=== PATIENT | male | born 1930 | race Caucasian/White ===

== ENCOUNTER → 2016-07-29 | Emergency (ER) | payer MEDICARE, MEDICAID ==
[~2016-07-29] VITALS: Ht 177.8 cm; Wt 72.6 kg
[~2016-07-29] MED LIST: ABILIFY5 MG PO; ALPRAZOLAM0.25 M2 PO; AMLODIPINE10 M2 PO; ASPIRIN 81MG TA81 MG PO; DOXAZOSIN MESYLA1 MG PO; FERROUS SULFAT325 M2 PO; FINASTERIDE5 M1 PO; FINASTERIDE5 MG PO; INDERAL 20MG. T20 MG PO; IPRATROPIUM BROM3 M1 INH; LEVOFLOXAC250 MG/10 PO; MIRTAZAPINE15 M1 PO; NEIGHBOR PO; NORCO 325 MG-51 TAB PO; PAROXETINE HYDR10 MG PO; PREDNISONE 10MG10 MG PO; PREDNISONE 5MG.5 MG PO; SEROQUEL25 MG PO; TRAZODONE 50MG50 MG PO; XARELTO15 MG PO
--- NOTE | 2016-07-29 11:32 | Emergency Room Report ---
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 PER EMS REPORT NO LOC, STATED PT WAS SITTING UP IN THE WHEELCHAIR WHEN THEY ARRIVED. 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 N Clinical Suspician of Infection? N Mental Status: 1 - Regular (Normal Baseline) Sepsis Risk:Low Sepsis Risk Have you (or family members/close friends) recently traveled outside the [place]? N If Yes, where/when: Have you had exposure to infectious disease within the past month? N TB? Other? Specify: Source patient, RN notes reviewed Exam Limitations no limitations Comment Pt send from the [facility] after he reportedlyfell out of his Wheelchair this morning. He is non verbal and has severe dementia. He does have a small cut in the right eyebrow but is alert and awake. When EMS arrived he was sitting in his wheelchair and no other complaints. Tetanus is UTD Cardiac Chest Pain Chest pain indicative of cardiac No ALLERGIES Coded Allergies: No Known Allergies (07/09/16) Home Medications Active Scripts ALBUTEROL-IPRATROPIUM (Iprat-Albut 0.5-3(2.5) MG/3 Ml) 3 ML INH Q6H6 14 Days Prov: 07/21/16 Levofloxacin 250 MG PO DAILY 6 Days Prov: 07/21/16 Reported Medications Doxazosin Mesylate (Doxazosin) 1 MG PO QHS Acetaminophen (Pain Reliever) 500 mg PO Q6HP PRN PAIN Alprazolam 0.25 MG PO QHS & Q6HP PRN ANXIETY ASPIRIN (Aspirin) 81 MG PO DAILY Quetiapine Fumarate (Seroquel) 12.5 MG PO AM & HS Prednisone (Prednisone 5MG) 5 MG PO DAILY Finasteride 5 MG PO DAILY Amlodipine Besylate (Amlodipine) 10 MG PO DAILY Ferrous Sulfate (Ferrous Sulfate 325MG) 325 MG PO BID Finasteride 5 MG PO DAILY Propranolol Hcl (Inderal 20MG. Tablet) 20 MG PO BID History Medical History General CAD? No Angina: No MT: No Hypertension? Yes Hyperlipidemia? Yes CHF? No DVT? No PE? No COPD? No Asthma? No Anemia? Yes GERD? No Gastric ulcers? Yes GI Bleed? No Hernia? Yes Thyroid Problems? No Hypothyroidism? No CVA? No Seizures? No Diabetes? No Renal Insuffiency? No End Stage Renal Disease? No UTI? No Stones? No BPH? Yes GB Disease: No Nephritic Syndrome? No Asplenia? No Hepatitis? No Sickle Cell Disease? No Arthritis? Yes Migraines? No Cataracts? Yes Glaucoma? No MRSA? No HIV? No TB? No Anxiety? Yes Depression? No Cancer? No More? 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 DT/Tetanus 1-4 Years Ago Pneumonia Received In Past Surgical Hx Previous Surgery?Y HERNIA REPAIR Family History Family Hx Diabetes No CAD No Hypertension Yes Hyperlipidemia Yes Cancer Yes Social History Smoking Hx Smoker: Unknown if Ever Smoked Tobacco: No Packs/day N/A Alcohol Alcohol: No Review of Systems All Other Systems Reviewed and Negative Constitutional see HPI Eyes see HPI, other (small lac right eyebrow) Psychiatric/Neurological see HPI Physical Exam Vital Signs Vital Signs Date Time Temp Pulse Resp B/P Pulse O2 O2 Flow FiO2 Ox Delivery Rate 07/29 1112 97.1 72 18 118/66 96 General Appearance normal appearance, WD/WN, no apparent distress Respiratory Status No: respiratory distress. Lung Sounds bilateral: normal breath sounds. Cardiovascular normal exam, regular rate/rhythm Neurologic alert, aphasia, pt has severe dementia and is non verbal Skin small laceration right eyebrow where the edges are well opposed Medical Decision Making LABS/Meds/Orders Pt receiving controlled substance in ED? No Results/Orders Orders Procedure Date/time Status DIET-NOTHING BY MOUTH 07/[address] HEAD REQ 07/29 1112 Complete Departure Departure Time of Disposition 1246 Disposition DC Home or Self Care(routine) Clinical Impression Primary Impression: Closed head injury Qualifiers: Encounter type: initial encounter Qualified Code: S09.90XA - Unspecified injury of head, initial encounter Secondary Impressions: Laceration of right eyebrow Qualifiers: Encounter type: initial encounter Qualified Code: S01.111A - Laceration without foreign body of right eyelid and periocular area, initial encounter Condition STABLE Patient Instructions Closed Head Injury, DI for Closed Head Injury Additional Instructions Follow Head injury instructions and keep laceration clean and dry. Return to the ED as needed. Discharge Counseling Counseled pt/family regarding diagnosis, test results, home care, follow up needs ED Critical Care Critical Care No If Critical Care minutes are documented, the time involved in the performance of seperately reportable procedures was not counted toward critical care time documented. I directly delivered medical care to this critically ill and/or injured patient. Timely evaluation and treatment was necessary to address the significant organ system(s) dysfunction present in this patient. at [id number]
--- OUTSIDE RECORDS SUMMARY | 2016-07-29 11:44 | External Medical Summary Rpt ---
Author Author , Organization [employer] Address Unknown Phone Unavailable Care Team Providers Care Homicide Squad Commanding Officer Name Role Phone BEINEKE DEANGELO, BEINEKE Unavailable Unavailable DEANGELO WILSON ALL, WILSON ALL Unavailable Unavailable [facility] Unavailable Unavailable SERVICE, [facility] Unavailable Unavailable [facility]ICE, [facility] Unavailable [place], [facility] Unavailable Unavailable [facility], [facility] ANGELITA NGA, Unavailable Unavailable ANGEILTA NGA AMBIKA LEILA, AMBIKA Unavailable Unavailable LEIL[facility] Unavailable [facility], [facility] Unavailable Unavailable [facility], [facility] GARCIA GINI, GARCIA GINI Unavailable Unavailable [facility], [facility], [facility] Un[facility] Unavailable [facility], [facility], Unavailable Unavailable [facility], Unavailable Unavailable [facility] RENUSCH STEVO, RENUSCH Unavailable Unavailable STEVO Purpose Continuity of Care Document - 05-25-2015 through 2016 Problems Code Diagnosis DOS Provider Status N390 URINARY 05-16-2016 [facility] INFECTION LA SITE NOT SPECIFIED R300 DYSURIA 05-16-2016 [facility] LA E785 HYPERLIPIDE 04-14-2016 [facility]ERT [facility] UNSPECIFIED LA I10 ESSENTIAL 04-14-2016 [facility]IMARY [facility] HYPERTENSIO LA N R5381 OTHER 04-14-2016 [facility] MALAISE [facility] LA R5383 OTHER 04-14-2016 [facility] FATIGUE [facility] LA D649 ANEMIA 03-29-2016 [facility] UNSPECIFIED PHYSICIANS LA G309 ALZHEIMERS 01-19-2016 [facility] UNSPECIFIED SERVICE M542 CERVICALGIA 01-18-2016 [facility] R05 COUGH 01-18-2016 [facility] [id number] CONTUSION 01-18-2016 [facility] UNS PART [facility], HEAD PLLC INITIAL ENCOUNTER [id number] UNSPECIFIED 01-18-2016 [facility] HEAD SERVICE INITIAL ENCOUNTER [id number] STRAIN 01-18-2016 [facility] MUSCLE FASC [facility], & TENDON PLLC NECK LEVL INIT ENC Q32UBWS UNSPECIFIED 01-18-2016 [facility] FALL [facility] INITIAL SERVICE ENCOUNTER Z043 ENCOUNTER 01-18-2016 [facility] FOLLOW OTH ACCIDENT R0989 OTH SPEC SX 01-06-2016 [facility] INVLV THE CIRC & RESP SYS R918 OTHER 12-13-2015 [facility] ABNORMAL FINDING OF LUNG FIELD D599 ACQUIRED 11-18-2015 [facility] UNSPECIFIED G932 BENIGN 11-18-2015 [facility] HYPERTENSIO N K219 GASTRO-ESOP 11-18-2015 [facility] REFLUX [facility] DISEASE HOME WITHOUT ESOPHAGITIS M6281 MUSCLE 11-18-2015 [facility] WEAKNESS [facility] GENERALIZED HOME R1319 OTHER 11-18-2015 [facility] DYSPHAGIA LONG[facility] R262 DIFFICULTY 11-18-2015 [facility] IN WALKING [facility]URSING NOT HOME ELSEWHERE CLASSIFIED Z9181 HISTORY OF 11-18-2015 [facility] FALLING LONG[facility] R4182 ALTERED 10-31-2015 [facility] UNSPECIFIED [id number] LACERATION 10-31-2015 [facility] W/O FB PHYSICIANS, OTHER PART PLL HEAD INITIAL ENC G35 MULTIPLE 09-24-2015 [facility] SCLEROSIS [facility] SERVICE M02080 PAIN IN 09-24-2015 [facility] G58772 SPONDYLOSIS 09-24-2015 [facility] W/O MEDICAL MYELOPATH/R [facility] ADICULOPATH Y CERV RGN M5032 OTH CERV 09-24-2015 [facility] DISC [facility]ICAL DEGENERATIO [facility] N MID-CERVICA L REGION R51 HEADACHE 09-24-2015 [facility] R58 HEMORRHAGE 09-24-2015 [facility] NOT [facility]BUL[facility] ELSEWHERE SERVICE CLASSIFIED R7881NT CONTUSION 09-24-2015 [facility] INITIAL [facility] ENCOUNTER [id number] CONTUSION 09-24-2015 [facility] OTHER PART PHYS[facility]ANS, OF HEAD PLLC INITIAL ENCOUNTER K679SVZ OTHER 09-24-2015 [facility] SPECIFIED AMBULANCE INJURIES SERVICE HEAD INITIAL ENCOUNTER Q116UBS UNSPECIFIED 09-24-2015 [facility] INJ[facility]Y OF MEDICAL NECK [facility] ASS INITIAL ENCOUNTER [id number] LACERATION 09-24-2015 [facility] W/O FOREIGN MEDICAL BODY RT IMAGING ASS WRIST INITIAL ENC X0481EA UNSPECIFIED 09-24-2015 [facility] INJURY RT MEDICAL WRIST HAND [facility] FINGERS INITIAL R109 UNSPECIFIED 07-26-2015 [facility] PAIN D72.829 ELEVATED WHITE BLOOD CELL COUNT, UNSPECIFIED 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 QFD0417 J18.9 PNEUMONIA, UNSPECIFIED ORGANISM J20.9 ACUTE BRONCHITIS, UNSPECIFIED J32.9 CHRONIC SINUSITIS, UNSPECIFIED R09.02 HYPOXEMIA S00.83XA CONTUSION OF OTHER PART OF HEAD, INITIAL ENCOUNTER S00.93XA CONTUSION OF UNSPECIFIED PART OF HEAD, INITIAL ENCOUNTER S01.319A LACERATION WITHOUT FOREIGN BODY OF UNSP EAR, INIT ENCNTR S01.81XA LACERATION W/O FOREIGN BODY OF OTH PART OF HEAD, INIT ENCNTR S16.1XXA STRAIN OF MUSCLE, FASCIA AND TENDON AT NECK LEVEL, INIT T17.908A UNSP FB IN RESP TRACT, PART UNSP CAUSING OTH INJURY, INIT W19.XXXA UNSPECIFIED FALL, INITIAL ENCOUNTER Z66 DO NOT RESUSCITATE Medications Na ND Rx Da Fi Fi Am Da Di Ph RX Ph St me C No te ll ll ou ys ag ar # ys at rm s nt no ma ic us Or Da si cy ia de te s n re d 00 02 04 0 [address] Ac PI 90 -2 -2 0. D 10 AR ti RI 46 8- 7- 00 CA 39 K ve N 28 20 20 0 RE 48 CH 81 88 [address] MG AR OP MA HE CH CY R EW J AB LL LE C TA BL ET FE 00 02 04 0 [address] Ac RR 53 -0 -2 0. D 10 AR ti OU 61 6- 7- 00 CA 39 K ve S 00 20 20 0 RE 47 CH IVEY 90 17 17 RI LF [address] AT AR OP E MA HE 32 CY R 5 J MG LL C TA BL ET RE 53 01 04 0 [address] Ac ME 32 -3 -1 80 D 05 AR ti DY 90 1- 7- .0 CA 90 K ve 16 20 20 00 RE 61 CH SK 10 17 17 RI IN [address] AR OP RE MA HE PA CY R IR J LL CR C EA M FE 00 02 03 0 60 30 ME 13 RI Ac RR 53 -0 -2 0. D 94 CH ti OU 61 6- 7- 00 CA 53 AR ve S 00 20 20 0 RE 01 D IVEY 90 17 17 RYAN LF 1 PH HN AT AR W E MA 32 CY 5 MG LL C TA BL ET 00 02 03 0 30 30 ME 13 RI Ac PI 90 -2 -2 0. D 94 CH ti RI 46 8- 7- 00 CA 53 AR ve N 28 20 20 0 RE 09 D 81 88 17 17 RYAN 9 PH HN MG AR W MA CH CY EW AB LL LE C TA BL ET 00 02 02 0 30 30 ME 13 RI Ac PI 90 -2 -2 0. D 82 CH ti RI 46 8- 8- 00 CA 69 AR ve N 28 20 20 0 RE 61 D 81 88 17 17 RYAN 9 PH HN MG AR W MA CH CY EW AB LL LE C TA BL ET FE 00 02 02 0 60 30 ME 13 RI Ac RR 90 -0 -2 0. D 71 CH ti OU 47 6- 8- 00 CA 25 AR ve S 59 20 20 0 RE 65 D IVEY 18 17 17 RYAN LF 0 PH HN AT AR W E MA 32 CY 5 MG LL C TA BL ET MA 00 02 02 0 60 15 ME 13 RI Ac PA 90 -2 -2 0. D 81 CH ti P 41 7- 7- 00 CA 36 AR ve 50 98 20 20 0 RE 89 D 0 86 17 17 RYAN MG 1 PH HN AR W TA MA BL CY ET LL C RE 53 01 01 0 11 15 ME 13 RI Ac ME 32 -3 -3 80 D 68 CH ti DY 90 1- 1- .0 CA 24 AR ve 16 20 20 00 RE 33 D SK 10 17 17 RYAN IN 4 PH HN AR W RE MA PA CY IR LL CR C EA M FE 00 04 01 0 60 30 ME 13 RI Ac RR 53 -0 -0 0. D 52 CH ti OU 61 1- 2- 00 CA 90 AR ve S 00 20 20 0 RE 75 D IVEY 90 16 17 RYAN LF 1 PH HN AT AR W E MA 32 CY 5 MG LL C TA BL ET CA 53 05 01 0 99 5 ME 13 RI Ac RR 32 -1 -0 0. D 53 CH ti IN 90 2- 2- 00 CA 68 AR ve GT 07 20 20 0 RE 29 D ON 68 16 17 RYAN 1 PH HN MO AR W IS MA T CY BA RR LL IE C R CR EA M FE 00 04 12 0 33 17 ME 13 RI Ac RR 53 -0 -0 0. D 39 CH ti OU 61 1- 3- 00 CA 09 AR ve S 00 20 20 0 RE 52 D IVEY 90 16 16 RYAN LF 1 PH HN AT AR W E MA 32 CY 5 MG LL C TA BL ET FE 00 04 11 0 60 30 ME 13 RI Ac RR 53 -0 -0 0. D 23 CH ti OU 61 1- 4- 00 CA 37 AR ve S 00 20 20 0 RE 75 D IVEY 90 16 16 RYAN LF 1 PH HN AT AR W E MA 32 CY 5 MG LL C TA BL ET MA 00 08 10 0 60 15 ME 12 RI Ac PA 90 -1 -1 0. D 79 CH ti P 41 5- 7- 00 CA 39 AR ve 50 98 20 20 0 RE 05 D 0 86 16 16 RYAN MG 1 PH HN AR W TA MA BL CY ET LL C FE 00 04 10 0 60 30 ME 13 RI Ac RR 53 -0 -0 0. D 10 CH ti OU 61 1- 8- 00 CA 10 AR ve S 00 20 20 0 RE 94 D IVEY 90 16 16 RYAN LF 1 PH HN AT AR W E MA 32 CY 5 MG LL C TA BL ET MA 00 03 07 0 30 7 ME 12 RI Ac PA 90 -0 -2 0. D 70 CH ti P 41 8- 9- 00 CA 45 AR ve 50 98 20 20 0 RE 63 D 0 86 16 16 RYAN MG 1 PH HN AR W TA MA BL CY ET LL C FE 00 04 07 0 60 30 ME 12 RI Ac RO 90 -0 -2 0. D 68 CH ti IVEY 47 1- 6- 00 CA 49 AR ve L 59 20 20 0 RE 36 D 32 08 16 16 RYAN 5 2 PH HN MG AR W MA TA CY BL ET LL C CA 53 05 07 0 99 5 ME 12 RI Ac RR 32 -1 -2 0. D 68 CH ti IN 90 2- 5- 00 CA 76 AR ve GT 07 20 20 0 RE 80 D ON 68 16 16 RYAN 1 PH HN MO AR W IS MA T CY BA RR LL IE C R CR EA M MA 00 03 07 0 30 7 ME 12 RI Ac PA 90 -0 -1 0. D 63 CH ti P 41 8- 1- 00 CA 96 AR ve 50 98 20 20 0 RE 32 D 0 86 16 16 RYAN MG 1 PH HN AR W TA MA BL CY ET LL C CA 53 05 06 0 99 5 ME 12 RI Ac RR 32 -1 -2 0. D 58 CH ti IN 90 2- 7- 00 CA 75 AR ve GT 07 20 20 0 RE 49 D ON 68 16 16 RYAN 1 PH HN MO AR W IS FERNANDA T CY BA RR LL IE C R CR EA M FE 00 04 06 0 60 30 ME 12 RI Ac RO 90 -0 -2 0. D 57 CH ti IVEY 47 1- 7- 00 CA 99 AR ve L 59 20 20 0 RE 84 D 32 08 16 16 RYAN 5 2 PH HN MG AR W MA TA CY BL ET LL C MA 00 03 06 0 30 7 ME 12 RI Ac PA 90 -0 -2 0. D 57 CH ti P 41 8- 4- 00 CA 92 AR ve 50 98 20 20 0 RE 53 D 0 86 16 16 RYAN MG 1 PH HN AR W TA MA BL CY ET LL C MA 00 03 06 0 30 7 ME 12 RI Ac PA 90 -0 -0 0. D 52 CH ti P 41 8- 7- 00 CA 12 AR ve 50 98 20 20 0 RE 92 D 0 86 16 16 RYAN MG 1 PH HN AR W TA MA BL CY ET LL C FE 00 04 05 0 60 30 ME 12 RI Ac RO 90 -0 -2 0. D 48 CH ti IVEY 47 1- 8- 00 CA 30 AR ve L 59 20 20 0 RE 81 D 32 08 16 16 RYAN 5 2 PH HN MG AR W MA TA CY BL ET LL C MA 00 03 05 0 30 7 ME 12 RI Ac PA 90 -0 -1 0. D 45 CH ti P 41 8- 9- 00 CA 28 AR ve 50 98 20 20 0 RE 86 D 0 86 16 16 RYAN MG 1 PH HN AR W TA MA BL CY ET LL C CA 53 05 05 0 99 5 ME 12 RI Ac RR 32 -1 -1 0. D 42 CH ti IN 90 2- 2- 00 CA 97 AR ve GT 07 20 20 0 RE 98 D ON 68 16 16 RYAN 1 PH HN MO AR W IS FERNANDA Rodriguez CY BA RR LL IE C R CR EA M CA 53 05 05 0 99 10 ME 12 RI Ac RR 32 -0 -0 0. D 41 CH ti IN 90 6- 6- 00 CA 00 AR ve GT 07 20 20 0 RE 19 D ON 68 16 16 RYAN 1 PH HN MO AR W IS FERNANDA Rodriguez CY BA RR LL IE C R CR EA M MA 00 03 05 0 30 7 ME 12 RI Ac PA 90 -0 -0 0. D 39 CH ti P 41 8- 4- 00 CA 84 AR ve 50 98 20 20 0 RE 76 D 0 86 16 16 RYAN MG 1 PH HN AR W TA MA BL CY ET LL C FE 00 04 04 0 33 19 ME 12 RI Ac RO 90 -0 -2 0. D 37 CH ti IVEY 47 1- 9- 00 CA 93 AR ve L 59 20 20 0 RE 57 D 32 08 16 16 RYAN 5 2 PH HN MG AR W MA TA CY BL ET LL C MA 00 03 04 0 30 7 ME 12 RI Ac PA 90 -0 -1 0. D 34 CH ti P 41 8- 9- 00 CA 56 AR ve 50 98 20 20 0 RE 00 D 0 86 16 16 RYAN MG 1 PH HN AR W TA MA BL CY ET LL C FL 64 04 04 0 20 20 ME 12 RI Ac OR 98 -1 -1 0. D 31 CH ti AN 00 1- - CA 81 AR ve EX 12 20 20 0 RE 05 D 95 16 16 RYAN TA 0 PH HN BL AR W ET MA CY LL C MA 00 03 04 0 30 7 ME 12 RI Ac PA 90 -0 -0 0. D 29 CH ti P 41 8- 4- 00 CA 40 AR ve 50 98 20 20 0 RE 59 D 0 86 16 16 RYAN MG 1 PH HN AR W TA MA BL CY ET LL C FE 00 04 04 0 60 30 ME 12 RI Ac RO 90 -0 -0 0. D 28 CH ti IVEY 47 1- 1- 00 CA 97 AR ve L 59 20 20 0 RE 81 D 32 08 16 16 RYAN 5 2 PH HN MG AR W MA TA CY BL ET LL C MA 00 03 03 0 30 7 ME 12 RI Ac PA 90 -0 -0 0. D 20 CH ti P 41 8- 8- 00 CA 74 AR ve 50 98 20 20 0 RE 33 D 0 86 16 16 RYAN MG 1 PH HN AR W TA MA BL CY ET LL C Procedures Procedure DOS Code Location Performer Comment CULTURE 83509 COMBINED COMBINED BACTERIAL 7 PHYSICIAN PHYSICIAN S LA S LA QUANTTATI VE COLONY COUNT URINE CULTURE 32134 COMBINED COMBINED BCT 7 PHYSICIAN PHYSICIAN ISOL&PRSM S LA S LA PTV ID ISOLATE EA URINE URNLS DIP 41136 COMBINED COMBINED 7 PHYSICIAN PHYSICIAN STICK/TAB S LA S LA LET REAGENT AUTO MICROSCOP Y VOLUME 98725 COMBINED COMBINED MEASUREME 7 PHYSICIAN PHYSICIAN NT TIMED S LA S LA COLLECTIO N EACH SUSCEPTIB 47256 COMBINED COMBINED ILITY 7 PHYSICIAN PHYSICIAN STUDY S [place] [address] COMBINED COMBINED FREE 7 PHYSICIAN PHYS[place] [address] COMBINED COMBINED THYROID 7 PHYSICIAN PHYSICIAN STIMULATI S LA S LA NG HORMONE TSH LIPID 49560 COMBINED COMBINED PANEL 7 PHYSICIAN PHYSICIAN S LA S LA BASIC 64435 COMBINED COMBINED METABOLIC 7 PHYSICIAN PHYSICIAN [place] [address] COMBINED COMBINED TRIIODOTH 7 PHYSICIAN PHYSICIAN YRONINE S LA S LA T3 TOTAL TT3 BASIC 91660 COMBINED COMBINED METABOLIC 7 PHYSICIAN PHYSICIAN PANEL S LA S LA CALCIUM TOTAL TRAVEL [address] MED 7 PHYSICIAN PHYSICIAN NEC LAB S LA S LA SPEC; PRORATD TRIP CHRG COLLECTIO 19568 COMBINED COMBINED N VENOUS 7 PHYSICIAN PHYSICIAN BLOOD S LA S LA VENIPUNCT URE GROUND A0425 [facility] MILEAGE 6 AMBULANCE AMBULANCE PER SERVICE SERVICE STATUTE MILE AMBULANCE A0428 [facility] SERVICE 6 AMBULANCE AMBULANCE BLS SERVICE SERVICE NONEMERGE NCY TRANSPORT AMB A0427 [facility] SERVICE 6 AMBULANCE AMBULANCE ALS SERVICE SERVICE EMERGENCY TRANSPORT LEVEL 1 RADIOLOGI 68224 [facility] 6 MEDICAL DEANGELO EXAMINATI IMAGING [place] [address] [facility] AN[facility] HEAD/BRAI 6 MEDICAL NGA N W/O IMAGING CONTRAST ASS MATERIAL GROUND A0425 [facility] MILEA 6 AMBULANCE AMBULANCE [place] [address] [facility] MEDICAL DEANGELO SPINE W/O IMAGING CONTRAST ASS MATERIAL TRANS R0070 [facility] X-RAY EQP&PERS MARJORIE/NRS MARJORIE-TRIP 1 PT RADIOLOGI 12017 [facility] C 6 LLC LLC EXAMINATI ON CHEST SINGLE VIEW FRONTAL SET-UP Q0092 [facility] LLC X-RAY EQUIPMENT TRAVEL [address] MED 6 PHYSICIAN PHYSICIAN NEC LAB S LA S LA SPEC; PRORATD TRIP CHRG COMPREHEN 96215 COMBINED COMBINED SIVE 6 PHYSICIAN PHYSICIAN METABOLIC S LA S LA PANEL BLOOD 96777 COMBINED COMBINED COUNT 6 PHYSICIAN PHYSICIAN COMPLETE S LA S LA AUTO&AUTO DIFRNTL WBC COLLECTIO 24114 COMBINED COMBINED N VENOUS 6 PHYSICIAN PHYSICIAN BLOOD S LA S LA VENIPUNCT URE TRANS R0075 [facility] LLC XRAY EQP&PERS MARJORIE/NRS MARJORIE-TRIP> 1 PT RADIOLOGI 88169 [facility] C [facility] LLC EXAMINATI ON CHEST SINGLE VIEW FRONTAL SET-UP Q0092 [facility] [place] [address] [place] ANGEL[facility] HEAD/BRAI 6 MEDICAL NGA N W/O IMAGING CONTRAST ASS MATERIAL AMB A0427 [facility] SERVICE 6 AMBULANCE AMBULANCE ALS SERVICE SERVICE [place] [address] [facility] HEAD/BRAI 6 [facility] N W/O INC INC CONTRAST MATERIAL AMBULANCE A0428 [facility] SERVICE 6 AMBULANCE AMBULANCE BLS SERVICE SERVICE NONEMERGE NCY TRANSPORT RADEX 54726 [facility] NATHAN WRIST 6 [facility] COMPLETE INC INC MINIMUM 3 VIEWS GROUND A0425 [facility] MILEAGE 6 AMBULANCE AMBULANCE [place] [address] [facility] MAXILLOFA 6 [facility] CIAL W/O INC INC CONTRAST MATERIAL RADEX 77582 [facility] WRIST 2 [address] [place] [address] [facility] CERVICAL 6 [facility] SPINE W/O INC INC CONTRAST MATERIAL COLLECTIO 84841 COMBINED COMBINED N VENOUS 6 PHYSICIAN PHYSICIAN BLOOD S LA S LA VENIPUNCT URE LIPID 87447 COMBINED COMBINED PANEL 6 PHYSICIAN PHYSICIAN S LA S LA TRAVEL [address] MED 6 PHYSICIAN PHYSICIAN NEC LAB S LA S LA SPEC; PRORATD TRIP CHRG TRAVEL [address] MED 6 PHYSICIAN PHYSICIAN NEC LAB S LA S LA SPEC; PRORATD TRIP CHRG BASIC 46239 COMBINED COMBINED METABOLIC 6 PHYSICIAN PHYSICIAN PANEL S LA S LA CALCIUM TOTAL COLLECTIO 58660 COMBINED COMBINED N VENOUS 6 PHYSICIAN PHYSICIAN BLOOD S LA S LA VENIPUNCT URE COLLECTIO 82325 COMBINED COMBINED N VENOUS 6 PHYSICIAN PHYSICIAN [place] [address] COMBINED COMBINED IRON 6 PHYSICIAN PHYSICIAN S LA S LA TRAVEL [address] MED 6 PHYSICIAN PHYSICIAN NEC LAB S LA S LA SPEC; PRORAT ACTL [place] TRAVEL [address] MED 6 PHYSICIAN PHYSICIAN NEC LAB S LA S LA SPEC; [place] [address] COMBINED COMBINED IRON 6 PHYSICIAN PHYSICIAN S LA S LA COLLECTIO 73466 COMBINED COMBINED N VENOUS 6 PHYSICIAN PHYSICIAN BLOOD S LA S LA VENIPUNCT URE GROUND A0425 [facility] MILEAGE 6 AMBULANCE AMBULANCE [place] [address] [place] [facility] HEAD/BRAI 6 MEDICAL N W/O IMAGING CONTRAST ASS MATERIAL AMB A0427 [facility] SERVICE 6 AMBULANCE AMBULANCE ALS SERVICE SERVICE EMERGENCY TRANSPORT LEVEL 1 BASIC 28973 COMBINED COMBINED METABOLIC 6 PHYSICIAN PHYSICIAN PANEL S LA S LA CALCIUM TOTAL TRAVEL [address] MED 6 PHYSICIAN PHYSICIAN NEC LAB S LA S LA SPEC; PRORATD TRIP CHRG COLLECTIO 53271 COMBINED COMBINED N VENOUS 6 PHYSICIAN PHYSICIAN BLOOD S LA S LA VENIPUNCT URE COLLECTIO 94988 COMBINED COMBINED N VENOUS 6 PHYSICIAN PHYSICIAN BLOOD S LA S LA VENIPUNCT URE TRAVEL [address] MED 6 PHYSICIAN PHYSICIAN NEC LAB S LA S LA SPEC; PRORATD TRIP CHRG BASIC 42721 COMBINED COMBINED METABOLIC 6 PHYSICIAN PHYSICIAN PANEL S LA S LA CALCIUM TOTAL TRAVEL [address] MED 6 PHYSICIAN PHYSICIAN NEC LAB S LA S LA SPEC; PRORATD TRIP CHRG COLLECTIO 51175 COMBINED COMBINED N VENOUS 6 PHYSICIAN PHYSICIAN BLOOD S LA S LA VENIPUNCT URE COMPREHEN 70869 COMBINED COMBINED SIVE 6 PHYSICIAN PHYSICIAN METABOLIC S LA S LA PANEL BLOOD 23228 COMBINED COMBINED COUNT 6 PHYSICIAN PHYSICIAN COMPLETE S LA S LA AUTO&AUTO DIFRNTL WBC TRANS R0070 [facility] X-RAY EQP&PERS MARJORIE/NRS MARJORIE-TRIP 1 PT RADEX 77536 [facility] ABDOMEN 1 6 LLC LLC ANTEROPOS TERIOR VIEW RADIOLOGI 53929 [facility] EXAMINATI ON CHEST SINGLE VIEW FRONTAL SET-UP Q0092 [facility] X-RAY EQUIPMENT RADIOLOGI 99585 [facility] EXAMINATI ON CHEST SINGLE VIEW FRONTAL TRANS R0070 [facility] X-RAY EQP&PERS MARJORIE/NRS MARJORIE-TRIP 1 PT SET-UP Q0092 [facility] LLC X-RAY EQUIPMENT COLLECTIO 14340 COMBINED COMBINED N VENOUS 6 PHYSICIAN PHYSICIAN [place]LO[place] [address] COMBINED COMBINED IRON 6 PHYSICIAN PHYSICIAN S LA S LA COMPREHEN 22111 COMBINED COMBINED SIVE 6 PHYSICIAN PHYSICIAN METABOLIC S LA S LA PANEL BLOOD 70501 COMBINED COMBINED COUNT 6 PHYSICIAN PHYSICIAN COMPLETE S LA S LA AUTO&[place] [address] COMBINED COMBINED FERRITIN 6 [place] [address] COMBINED COMBINED MAGNESIUM 6 PHYSICIAN PHYSICIAN S LA S LA TRAVEL [address] MED 6 PHYSICIAN PHYSICIAN NEC LAB S LA S LA SPEC; PRORATD TRIP CHRG Encounters Encounter Start End Date Code Location Performer Type Date EMERGENCY 54335 TASHIA APPLE 6 6 PHYSICIAN [facility]ILA [facility] T VISIT HIGH/URGE NT SEVERITY [facility] 6 6 [facility] 99449 TASHIA MARIE 6 6 PHYSICIAN DARIAN STEPHENS T VISIT HIGH/URGE NT SEVERITY [facility] 6 6 [facility] 47509 TASHIA RUBALCAVA 6 6 PHYSICIAN DARIAN SUAREZ T VISIT HIGH/URGE NT SEVERITY [facility] - 6 6 [facility] 04908 [facility] 6 [facility] MODERATE SEVERITY [facility] 6 6 [facility] 6 [facility] 6 6 [facility]
--- OUTSIDE RECORDS SUMMARY | 2016-07-29 11:44 | External Medical Summary Rpt ---
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 Name Role Phone BEINEKE DEANGELO, BEINEKE Unavailable Unavailable DEANGELO WILSON ALL, WILSON ALL Unavailable Unavailable [facility] Unavailable Unavailable SERVICE, [facility] Unavailable Unavailable [facility]ICE, [facility]available Unavailable [place], [facility] [place] [facility] Unavailable Unavailable [place], [facility] [place] ANGELITA NGA, Unavailable Unavailable ANGELITA NGA AMBIKA LEILA, AMBIKA Unavailable Unavailable [facility] Unavailable Unavailable HOME, [facility] Unavailable Unavailable INC, [facility] GARCIA GINI, GARCIA GINI Unavailable Unavailable [facility] Unavailable Unavailable [facility] Unavailable [...] DISEASE AMBULANCE UNSPECIFIED SERVICE M542 CERVICALGIA 01-18-2016 [facility] R05 COUGH 01-18-2016 [facility] [id number] CONTUSION 01-18-2016 [facility] UNS PART PHYSICIANS, HEAD PLLC INITIAL ENCOUNTER [id number] UNSPECIFIED 01-18-2016 [facility] HEAD SERVICE INITIAL ENCOUNTER [id number] STRAIN 01-18-2016 [facility] MUSCLE FASC PHYSICIANS, & TENDON PLLC NECK LEVL INIT ENC [id number] UNSPECIFIED 01-18-2016 [facility] INITIAL SERVICE ENCOUNTER Z043 ENCOUNTER 01-18-2016 [facility] EXAM & MEDICAL OBSERVATION [facility] FOLLOW [...] HOME R1319 OTHER 11-18-2015 [facility] DYSPHAGIA [facility] R262 DIFFICULTY 11-18-2015 [facility] IN WALKING NURSING NOT HOME ELSEWHERE CLASSIFIED Z9181 HISTORY OF 11-18-2015 [facility] FALLING [facility] R4182 ALTERED 10-31-2015 [facility] MENTAL MEDICAL STATUS [facility] UNSPECIFIED [id number] LACERATION 10-31-2015 [facility] W/O FB PHYSICIANS, OTHER PART PLL HEAD INITIAL ENC G35 MULTIPLE 09-24-2015 [facility] S[facility]EROSIS [facility] SERVICE [id number] PAIN IN 09-24-2015 [facility] WRIST [facility] [id number] SPONDYLOSIS 09-24-2015 [place] W/O MEDICAL MYELOPATH/R IMAGING ASS ADICULOPATH Y CERV RGN M5032 OTH CERV 09-24-2015 [facility] DISC MEDICAL DEGENERATIO IMAGING ASS N MID-CERVICA L REGION R51 HEADACHE 09-24-2015 [facility] R58 HEMORRHAGE 09-24-2015 [facility] NOT [facility]BULANCE ELSEWHERE SERVICE CLASSIFIED [id number] CONTUSION 09-24-2015 [facility] INITIAL IMAGING ASS ENCOUNTER [id number] CONTUSION 09-24-2015 [facility] OTHER PART PHYSICIANS, OF HEAD PLLC INITIAL ENCOUNTER [id number] OTHER 09-24-2015 [facility] SPECIFIED AMBULANCE INJURIES SERVICE HEAD INITIAL ENCOUNTER [id number] UNSPECIFIED 09-24-2015 [place] INJURY OF MEDICAL NECK IMAGING ASS INITIAL ENCOUNTER [id number] LACERATION 09-24-2015 [place] W/O FOREIGN MEDICAL BODY RT IMAGING ASS WRIST INITIAL ENC [id number] UNSPECIFIED 09-24-2015 [place] INJURY RT MEDICAL WRIST HAND IMAGING ASS FINGERS INITIAL R109 UNSPECIFIED 07-26-2015 [facility] PAIN D72.829 ELEVATED WHITE BLOOD CELL COUNT, UNSPECIFIED 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 [id number] J18.9 PNEUMONIA, UNSPECIFIED ORGANISM J20.9 ACUTE BRONCHITIS, [...] Procedure DOS Code Location Performer Comment CULTURE 21805 [facility] BACTERIAL 7 PHYSICIAN PHYSICIAN S LA S LA QUANTTATI VE COLONY COUNT URINE CULTURE 94218 COMBINED COMBINED BCT 7 PHYSICIAN PHYSICIAN ISOL&PRSM S LA S LA PTV ID ISOLATE EA URINE URNLS DIP 66028 COMBINED COMBINED 7 PHYSICIAN PHYSICIAN STICK/TAB S LA S LA LET REAGENT AUTO MICROSCOP Y VOLUME 48220 COMBINED COMBINED MEASUREME 7 PHYSICIAN PHYSICIAN NT TIMED S LA S LA COLLECTIO N EACH SUSCEPTIB 90058 COMBINED COMBINED ILITY 7 PHYSICIAN PHYSICIAN STUDY S LA [place] [address] COMBINED COMBINED FREE 7 PHYSICIAN PHYSIC[place] [address] COMBINED COMBINED THYROID 7 PHYSICIAN PHYSICIAN STIMULATI S LA S LA NG HORMONE TSH LIPID 42606 COMBINED COMBINED PANEL 7 PHYSICIAN PHYSICIAN S LA S LA BASIC 53431 COMBINED COMBINED METABOLIC 7 PHYSICIAN PHYSICIAN [place]EL [place] [address] COMBINED COMBINED TRIIODOTH 7 PHYSICIAN PHYSICIAN YRONINE S LA S LA T3 TOTAL TT3 BASIC 84913 COMBINED COMBINED METABOLIC 7 PHYSICIAN PHYSICIAN PANEL S LA S LA CALCIUM TOTAL TRAVEL [address] MED 7 PHYSICIAN PHYSICIAN NEC LAB S LA S LA SPEC; PRORATD TRIP CHRG COLLECTIO 60124 COMBINED COMBINED N VENOUS 7 PHYSICIAN PHYSICIAN BLOOD S LA S LA VENIPUNCT URE GROUND A0425 [facility] MILEAGE 6 AMBULANCE AMBULANCE PER SERVICE SERVICE STATUTE MILE AMBULANCE A0428 [facility] SERVICE 6 AMBULANCE AMBULANCE BLS SERVICE SERVICE NONEMERGE NCY TRANSPORT AMB A0427 [facility] SERVICE 6 AMBULANCE AMBULANCE ALS SERVICE SERVICE EMERGENCY TRANSPORT LEVEL 1 RADIOLOGI 19670 [facility] MEDICAL DEANGELO EXAMINATI IMAGING [place] [address] [place] [facility] HEAD/BRAI 6 MEDICAL NGA N W/O IMAGING CONTRAST ASS MATERIAL GROUND A0425 [facility] MILEA 6 AMBULANCE AMBULANCE [place] [address] [place] [facility] C[facility] 6 MEDICAL DEANGELO SPINE W/O IMAGING CONTRAST ASS MATERIAL TRANS R0070 [facility] X-RAY EQP&PERS MARJORIE/NRS MARJORIE-TRIP 1 PT RADIOLOGI 90833 [facility] LLC EXAMINATI ON CHEST SINGLE VIEW FRONTAL SET-UP Q0092 [facility] X-RAY EQUIPMENT TRAVEL [address] MED 6 PHYSICIAN PHYSICIAN NEC LAB S LA S LA SPEC; PRORATD TRIP CHRG COMPREHEN 39607 COMBINED COMBINED SIVE 6 PHYSICIAN PHYSICIAN METABOLIC S LA S LA PANEL BLOOD 59918 COMBINED COMBINED COUNT 6 PHYSICIAN PHYSICIAN COMPLETE S LA S LA AUTO&AUTO DIFRNTL WBC COLLECTIO 49734 COMBINED COMBINED N VENOUS 6 PHYSICIAN PHYSICIAN BLOOD S LA S LA VENIPUNCT URE TRANS R0075 [facility] XRAY EQP&PERS MARJORIE/NRS MARJORIE-TRIP> 1 PT RADIOLOGI 34300 [facility] EXAMINATI ON CHEST SINGLE VIEW FRONTAL SET-UP Q0092 [facility] [place] [address] [place] [facility] HEAD/BRAI 6 MEDICAL NGA N W/O IMAGING CONTRAST ASS MATERIAL AMB A0427 [facility] SERVICE 6 AMBULANCE AMBULANCE ALS SERVICE SERVICE [place] [address] [facility] HEAD/BRAI 6 [facility] N W/O INC INC CONTRAST MATERIAL AMBULANCE A0428 [facility] SERVICE 6 AMBULANCE AMBULANCE BLS SERVICE SERVICE NONEMERGE NCY TRANSPORT RADEX 37650 [facility] NATHAN WRIST 6 [facility] COMPLETE INC INC MINIMUM [address] [facility] MILEAGE 6 AMBULANCE AMBULANCE [place] [address] [facility] MAXILLOFA 6 [facility] CIAL W/O INC INC CONTRAST MATERIAL RADEX 28933 [place] [facility] WRIST 2 [address] [place] [address] [facility] CERVICAL 6 [facility] SPINE W/O INC INC CONTRAST MATERIAL COLLECTIO 44099 COMBINED COMBINED N VENOUS 6 PHYSICIAN PHYSICIAN BLOOD S LA S LA VENIPUNCT URE LIPID 80629 COMBINED COMBINED PANEL 6 PHYSICIAN PHYSICIAN S LA S LA TRAVEL [address] MED 6 PHYSICIAN PHYSICIAN NEC LAB S LA S LA SPEC; PRORATD TRIP CHRG TRAVEL [address] MED 6 PHYSICIAN PHYSICIAN NEC LAB S LA S LA SPEC; PRORATD TRIP CHRG BASIC 94745 COMBINED COMBINED METABOLIC 6 PHYSICIAN PHYSICIAN PANEL S LA S LA CALCIUM TOTAL COLLECTIO 62938 COMBINED COMBINED N VENOUS 6 PHYSICIAN PHYSICIAN BLOOD S LA S LA VENIPUNCT URE COLLECTIO 67512 COMBINED COMBINED N VENOUS 6 PHYSICIAN PHYSICIAN [place] [address] COMBINED COMBINED IRON 6 PHYSICIAN PHYSICIAN S LA S LA TRAVEL [address] MED 6 PHYSICIAN PHYSICIAN NEC LAB S LA S LA SPEC; PRORAT ACTL MILE TRAVEL [address] MED 6 PHYSICIAN PHYSICIAN NEC LAB S LA S LA SPEC; [place] [address] COMBINED COMBINED IRON 6 PHYSICIAN PHYSICIAN S LA S LA COLLECTIO 52905 COMBINED COMBINED N VENOUS 6 PHYSICIAN PHYSICIAN BLOOD S LA S LA VENIPUNCT URE GROUND A0425 [facility] MILEAGE 6 AMBULANCE AMBULANCE [place] [address] [place] [facility] HEAD/BRAI 6 MEDICAL N W/O IMAGING CONTRAST ASS MATERIAL AMB A0427 [facility] SERVICE 6 AMBULANCE AMBULANCE ALS SERVICE SERVICE EMERGENCY TRANSPORT LEVEL 1 BASIC 43078 COMBINED COMBINED METABOLIC 6 PHYSICIAN PHYSICIAN PANEL S LA S LA CALCIUM TOTAL TRAVEL [address] MED 6 PHYSICIAN PHYSICIAN NEC LAB S LA S LA SPEC; PRORATD TRIP CHRG COLLECTIO 21952 COMBINED COMBINED N VENOUS 6 PHYSICIAN PHYSICIAN BLOOD S LA S LA VENIPUNCT URE COLLECTIO 04905 COMBINED COMBINED N VENOUS 6 PHYSICIAN PHYSICIAN BLOOD S LA S LA VENIPUNCT URE TRAVEL [address] MED 6 PHYSICIAN PHYSICIAN NEC LAB S LA S LA SPEC; PRORATD TRIP CHRG BASIC 40632 COMBINED COMBINED METABOLIC 6 PHYSICIAN PHYSICIAN PANEL S LA S LA CALCIUM TOTAL TRAVEL [address] MED 6 PHYSICIAN PHYSICIAN NEC LAB S LA S LA SPEC; PRORATD TRIP CHRG COLLECTIO 38535 COMBINED COMBINED N VENOUS 6 PHYSICIAN PHYSICIAN BLOOD S LA S LA VENIPUNCT URE COMPREHEN 01045 COMBINED COMBINED SIVE 6 PHYSICIAN PHYSICIAN METABOLIC S LA S LA PANEL BLOOD 26748 COMBINED COMBINED COUNT 6 PHYSICIAN PHYSICIAN COMPLETE S LA S LA AUTO&AUTO DIFRNTL WBC TRANS R0070 [facility] X-RAY EQP&PERS MARJORIE/NRS MARJORIE-TRIP 1 PT RADEX 21290 [facility] 1 6 [facility] LLC ANTEROPOS TERIOR VIEW RADIOLOGI 42342 [facility] EXAMINATI ON CHEST SINGLE VIEW FRONTAL SET-UP Q0092 [facility] X-RAY EQUIPMENT RADIOLOGI 72275 [facility] EXAMINATI ON CHEST SINGLE VIEW FRONTAL TRANS R0070 [facility] X-RAY EQP&PERS MARJORIE/NRS MARJORIE-TRIP 1 PT SET-UP Q0092 [facility] X-RAY EQUIPMENT COLLECTIO 30298 COMBINED COMBINED N VENOUS 6 PHYSICIAN PHYSICIAN BLOOD [place] [address] COMBINED COMBINED IRON 6 PHYSICIAN PHYSICIAN S LA S LA COMPREHEN 88974 COMBINED COMBINED SIVE 6 PHYSICIAN PHYSICIAN METABOLIC S LA S LA PANEL BLOOD 89326 COMBINED COMBINED COUNT 6 PHYSICIAN PHYSICIAN COMPLETE S LA S LA AUTO&[place] [address] COMBINED COMBINED FERRITIN 6 PHYSIC[place] [address] COMBINED COMBINED MAGNESIUM 6 PHYSICIAN PHYSICIAN S LA S LA TRAVEL [address] MED 6 PHYSICIAN PHYSICIAN NEC LAB S LA S LA SPEC; PRORATD TRIP CHRG Encounters Encounter Start End Date Code Location Performer Type Date EMERGENCY 82897 [facility] APPLE 6 6 PHYSICIAN LEILA DEPARTMEN S, PLLC T VISIT HIGH/URGE NT SEVERITY [facility] 6 6 [place] [facility] EM[facility] 35154 [facility] MARIE 6 6 PHYSICIAN DARIAN STEPHENS T VISIT HIGH/URGE NT SEVERITY [facility] INPATIENT 6 6 [place] [facility] EMERG[facility] 81462 [facility] RUBALCAVA 6 6 PHYSICIAN DARIAN SUAREZ T VISIT HIGH/URGE NT SEVERITY [facility] - 6 6 [facility] OUT[facility]IEN INC T EMERGENCY 58825 [facility] 6 [facility] MODERATE SEVER[facility] 6 6 [place] [facility] 6 [address] [place] [facility] INPATIENT 6 6 [facility]
--- OUTSIDE RECORDS SUMMARY | 2016-07-29 11:46 | External Medical Summary Rpt ---
Demographics Preferred Language Divehi Marital Status Unknown Protestant Affiliation Unknown Race Unknown Ethnic Group Unknown Author Author , Organization [employer] Address Unknown Phone Unavailable Purpose Continuity of Care Document - through 2016 Immunization No patient found.
--- OUTSIDE RECORDS SUMMARY | 2016-07-29 11:46 | External Medical Summary Rpt ---
Demographics Preferred Language French Marital Status Unknown Evangelical Affiliation Unknown Race Unknown Ethnic Group Unknown Author Author , Organization [employer] Address Unknown Phone Unavailable Purpose Continuity of Care Document - through 2016 Immunization No patient found.
--- OUTSIDE RECORDS SUMMARY | 2016-07-29 11:46 | External Medical Summary Rpt ---
Author Author , Organization [employer] Address Unknown Phone Unavailable Care Team Providers Care Rn Hemodialysis Name Role Phone BEINEKE DEANGELO, BEINEKE Unavailable [...] [facility] Unavailable Unavailable HOME, [facility] Unavailable Un[facility], [facility] GARCIA GINI, GARCIA GINI Unavailable Unavailable [facility] Unavailable Unavailable [facility], [facility] Unavailable [...] DISEASE AMBULANCE UNSPECIFIED SERVICE M542 CERVICALGIA 01-18-2016 [facility] R05 COUGH 01-18-2016 [facility] [id number] CONTUSION 01-18-2016 [facility]NS [facility]ANS, HEAD PLLC INITIAL ENCOUNTER [id number] UNSPECIFIED 01-18-2016 [facility] HEAD SERVICE INITIAL ENCOUNTER [id number] STRAIN 01-18-2016 [facility] MUSCLE FASC PHYSICIANS, & TENDON PLLC NECK LEVL INIT ENC [id number] UNSPECIFIED 01-18-2016 [facility] INITIAL SERVICE ENCOUNTER Z043 ENCOUNTER 01-18-2016 [place] EXAM & MEDICAL OBSERVATION [facility] FOLLOW [...] HOME R1319 OTHER 11-18-2015 [facility] DYSPHAGIA LONG-TERM R262 DIFFICULTY 11-18-2015 [facility]UR[facility] NOT HOME ELSEWHERE CLASSIFIED Z9181 HISTORY OF 11-18-2015 [facility] FALLING LONG-TERM R4182 ALTERED 10-31-2015 [facility] STATUS [facility] UNSPECIFIED [id number] LACERATION 10-31-2015 [facility] W/O FB PHYSICIANS, OTHER PART [facility] HEAD INITIAL ENC G35 MULTIPLE 09-24-2015 [facility] SCLEROSIS AMBULANCE SERVICE M42423 PAIN IN 09-24-2015 [place] RIGHT WRIST [facility] N07156 SPONDYLOSIS 09-24-2015 [place] W/O MEDICAL MYELOPATH/R IMAGING ASS ADICULOPATH Y CERV RGN M5032 OTH CERV 09-24-2015 [place] DISC MEDICAL DEGENERATIO IMAGING ASS N MID-CERVICA L REGION R51 HEADACHE 09-24-2015 [facility] R58 HEMORRHAGE 09-24-2015 [facility] NOT AMBULANCE ELSEWHERE SERVICE CLASSIFIED [id number] CONTUSION 09-24-2015 [place] [facility] MEDICAL INITIAL IMAGING ASS ENCOUNTER [id number] CONTUSION 09-24-2015 [facility] OTHER PART PHYSICIANS, OF HEAD PLLC INITIAL ENCOUNTER [id number] OTHER 09-24-2015 [facility] SPECIFIED AMBULANCE INJURIES SERVICE HEAD INITIAL ENCOUNTER [id number] UNSPECIFIED 09-24-2015 [place] INJURY OF MEDICAL NECK IMAGING ASS INITIAL ENCOUNTER [id number] LACERATION 09-24-2015 [place] W/O FOREIGN MEDICAL BODY RT IMAGING ASS WRIST INITIAL ENC [id number] UNSPECIFIED 09-24-2015 [place] INJURY RT MEDICAL WRIST HAND IMAGING ASS FINGERS INITIAL R109 UNSPECIFIED 07-26-2015 [facility] PAIN Medications Na ND Rx Da Fi Fi [...] IR J LL CR C EA M 00 02 03 0 30 30 ME 13 RI Ac PI 90 -2 -2 0. D 94 CH ti RI 46 8- 7- 00 CA 53 AR ve N 28 20 20 0 RE 09 D 81 88 17 17 RYAN 9 PH HN MG AR W MA CH CY EW AB LL LE C TA BL ET FE 00 02 03 0 60 30 ME 13 RI Ac RR 53 -0 -2 0. D 94 CH ti OU 61 6- 7- 00 CA 53 AR ve S 00 20 20 0 RE 01 D IVEY 90 17 17 RYAN LF 1 PH HN AT AR W E MA 32 CY 5 MG LL C TA BL ET FE 00 02 [...] LL C TA BL ET 00 02 02 0 30 30 ME 13 RI Ac PI 90 -2 -2 0. D 82 CH ti RI 46 8- 8- 00 CA 69 AR ve N 28 20 20 0 RE 61 D 81 88 17 17 RYAN 9 PH HN MG AR W MA CH CY EW AB LL LE C TA BL ET MA 00 02 [...] CY ET LL C FE 00 04 06 0 60 30 ME 12 RI Ac RO 90 -0 -2 0. D 57 CH ti IVEY 47 1- 7- 00 CA 99 AR ve L 59 20 20 0 RE 84 D 32 08 16 16 RYAN 5 2 PH HN MG AR W MA TA CY BL ET LL C CA 53 05 06 [...] R CR EA M MA 00 03 06 0 30 7 [...] D 31 CH ti AN 00 1- 1- 00 CA 81 AR ve EX 12 20 [...] Procedure DOS Code Location Performer Comment CULTURE 01497 COMBINED COMBINED BACTERIAL 7 PHYSICIAN PHYSICIAN S LA S LA QUANTTATI VE COLONY COUNT URINE CULTURE 73945 COMBINED COMBINED BCT 7 PHYSICIAN PHYSICIAN ISOL&PRSM S LA S LA PTV ID ISOLATE EA URINE SUSCEPTIB 94662 COMBINED COMBINED ILITY 7 PHYSICIAN PHYSICIAN STUDY S LA S LA ANTIMICRO BIAL DISK METHOD VOLUME 17933 COMBINED COMBINED MEASUREME 7 PHYSICIAN PHYSICIAN NT TIMED S LA S LA COLLECTIO N EACH URNLS DIP 25686 COMBINED COMBINED 7 PHYSICIAN PHYSICIAN STICK/TAB S LA S LA LET REAGENT AUTO MICROSCOP Y BASIC 45415 COMBINED COMBINED METABOLIC 7 PHYSICIAN PHYSICIAN PANEL S LA S LA CALCIUM TOTAL LIPID 23565 COMBINED COMBINED PANEL 7 PHYSIC[place] [address] COMBINED COMBINED FREE 7 PHYSICIAN PHYSIC[place] [address] COMBINED COMBINED THYROID 7 PHYSICIAN PHYSICIAN STIMULATI [place] [address] COMBINED COMBINED TRIIODOTH 7 PHYSICIAN PHYSICIAN YRONINE S LA S LA T3 TOTAL TT3 TRAVEL [address] MED 7 PHYSICIAN PHYSICIAN NEC LAB S LA S LA SPEC; PRORATD TRIP CHRG COLLECTIO 24033 COMBINED COMBINED N VENOUS 7 PHYSICIAN PHYSICIAN BLOOD S LA S LA VENIPUNCT URE BASIC 10516 COMBINED COMBINED METABOLIC 7 PHYSICIAN PHYSICIAN PANEL S LA S LA CALCIUM TOTAL GROUND A0425 [facility] AMBULANCE PER SERVICE SERVICE STATUTE MILE AMBULANCE A0428 [facility] SERVICE 6 AMBULANCE AMBULANCE BLS SERVICE [place] [address] [facility] LERMAUTCHER HEAD/BRAI 6 MEDICAL NGA N W/O IMAGING CONTRAST ASS MATERIAL RADIOLOGI 83502 [facility] TAVAREZKE C 6 MEDICAL DEANGELO EXAMINATI IMAGING [place] [address] AMMY HERMAN CERVICAL 6 MEDICAL DEANGELO SPINE W/O IMAGING CONTRAST ASS MATERIAL GROUND A0425 [facility] 6 AMBULANCE AMBULANCE PER SERVICE SERVICE STATUTE MILE AMB A0427 [facility] SERVICE 6 AMBULANCE AMBULANCE ALS SERVICE SERVICE EMERGENCY TRANSPORT LEVEL 1 SET-UP Q0092 [facility] X-RAY EQUIPMENT RADIOLOGI 03221 [facility] EXAMINATI ON CHEST SINGLE VIEW FRONTAL TRANS R0070 [facility] X-RAY EQP&PERS MARJORIE/NRS MARJORIE-TRIP 1 PT BLOOD 74102 COMBINED COMBINED COUNT 6 PHYSICIAN PHYSICIAN COMPLETE S LA S LA AUTO&AUTO DIFRNTL WBC COLLECTIO 20269 COMBINED COMBINED N VENOUS 6 PHYSICIAN PHYSICIAN BLOOD S LA S LA VENIPUNCT URE COMPREHEN 08434 COMBINED COMBINED SIVE 6 PHYSICIAN PHYSICIAN METABOLIC S LA S LA PANEL TRAVEL [address] MED 6 PHYSICIAN PHYSICIAN NEC LAB S LA S LA SPEC; PRORATD TRIP CHRG SET-UP Q0092 [facility] X-RAY EQUIPMENT TRANS R0075 [facility] XRAY EQP&PERS MARJORIE/NRS MARJORIE-TRIP> 1 PT RADIOLOGI 27050 [facility] EXAMINATI [place] [address] [place] [facility] HEAD/BRAI 6 MEDICAL NGA N W/[place] [address] [place] [facility] HEAD/BRAI 6 MEDICAL N W/O IMAGING CONTRAST ASS MATERIAL AMBULANCE A0428 [facility] SERVICE 6 AMBULANCE AMBULANCE BLS SERVICE SERVICE NONEMERGE NCY TRANSPORT RADEX 57696 [facility]AN WRIST 6 [facility] COMPLETE [place] MIN[address] [place] [address] [place] [facility] MAXILLOFA 6 MEDICAL CIAL W/O IMAGING CONTRAST ASS MATERIAL RADEX 62446 [place] [facility] WRIST 2 [address] [place] [address] [facility] [facility] CERVICAL 6 MEDICAL SPINE W/O IMAGING CONTRAST ASS MATERIAL AMB A0427 [facility] SERVICE 6 AMBULANCE AMBULANCE ALS SERVICE SERVICE EMERGENCY TRANSPORT LEVEL 1 GROUND A0425 [facility] MILEAGE 6 AMBULANCE AMBULANCE PER SERVICE SERVICE STATUTE MILE COLLECTIO 83483 COMBINED COMBINED N VENOUS 6 PHYSICIAN PHYSICIAN BLOOD S LA S LA VENIPUNCT URE LIPID 48251 COMBINED COMBINED PANEL 6 PHYSICIAN PHYSICIAN S LA S LA TRAVEL [address] MED 6 PHYSICIAN PHYSICIAN NEC LAB S LA S LA SPEC; PRORATD TRIP CHRG TRAVEL [address] MED 6 PHYSICIAN PHYSICIAN NEC LAB S LA S LA SPEC; PRORATD TRIP CHRG BASIC 32657 COMBINED COMBINED METABOLIC 6 PHYSICIAN PHYSICIAN PANEL S LA S LA CALCIUM TOTAL COLLECTIO 33410 COMBINED COMBINED N VENOUS 6 PHYSICIAN PHYSICIAN BLOOD S LA S LA VENIPUNCT URE COLLECTIO 95968 COMBINED COMBINED N VENOUS 6 PHYSICIAN PHYSICIAN [place]LO[place] [address] COMBINED COMBINED IRON 6 PHYSICIAN PHYSICIAN S LA S LA TRAVEL [address] MED 6 PHYSICIAN PHYSICIAN NEC LAB S LA S LA SPEC; PRORAT ACTL MILE TRAVEL [address] MED 6 PHYSICIAN PHYSICIAN NEC LAB S LA S [place] [address] COMBINED COMBINED IRON 6 PHYSICIAN PHYSICIAN S LA S LA COLLECTIO 17068 COMBINED COMBINED N VENOUS 6 PHYSICIAN PHYSICIAN B[place] [address] [facility] HEAD/BRAI 6 MEDICAL N W/O IMAGING CONTRAST ASS MATERIAL GROUND A0425 [facility] MILEAGE 6 AMBULANCE AMBULANCE PER SERVICE SERVICE STATUTE MILE AMB A0427 [facility] SERVICE 6 AMBULANCE AMBULANCE ALS SERVICE SERVICE EMERGENCY TRANSPORT LEVEL 1 [facility] 93929 COMBINED COMBINED METABOLIC 6 PHYSICIAN PHYSICIAN PANEL S LA S LA CALCIUM TOTAL TRAVEL [address] MED 6 PHYSICIAN PHYSICIAN NEC LAB S LA S LA SPEC; PRORATD TRIP CHRG COLLECTIO 32470 COMBINED COMBINED N VENOUS 6 PHYSICIAN PHYSICIAN BLOOD S LA S LA VENIPUNCT URE COLLECTIO 06309 COMBINED COMBINED N VENOUS 6 PHYSICIAN PHYSICIAN BLOOD S LA S LA VENIPUNCT URE TRAVEL [address] MED 6 PHYSICIAN PHYSICIAN NEC LAB S LA S LA SPEC; PRORATD TRIP [facility] BASIC 98028 COMBINED COMBINED METABOLIC 6 PHYSICIAN PHYSICIAN PANEL S LA S LA CALCIUM TOTAL TRAVEL [address] MED 6 PHYSICIAN PHYSICIAN NEC LAB S LA S LA SPEC; [facility]D [facility]IP [facility] 65845 COMBINED COMBINED N VENOUS 6 PHYSICIAN PHYSICIAN BLOOD S LA S LA VENIPUNCT URE COMPREHEN 19251 COMBINED COMBINED SIVE 6 PHYSICIAN PHYSICIAN METABOLIC S LA S LA PANEL BLOOD 75633 COMBINED COMBINED COUNT 6 PHYSICIAN PHYSICIAN COMPLETE S LA S LA AUTO&AUTO DIFRNTL WBC SET-UP Q0092 [facility] X-RAY EQUIPMENT RADEX 38314 [facility] ABDOMEN 1 [facility] ANTEROPOS TERIOR VIEW TRANS R0070 [facility] PRTBL [facility] X-RAY EQP&PERS MARJORIE/NRS MARJORIE-TRIP 1 PT RADIOLOGI 94076 [facility] C [facility] EXAMINATI ON CHEST SINGLE VIEW FRONTAL RADIOLOGI 90700 [facility] EXAMINATI ON CHEST SINGLE VIEW FRONTAL TRANS R0070 [facility] PRTBL 6 [facility] X-RAY EQP&PERS MARJORIE/NRS MARJORIE-TRIP 1 PT SET-UP Q0092 [facility] 6 [facility] [place] [address] COMBINED COMBINED IRON 6 PHYSICIAN PHYSICIAN S LA S LA BLOOD 24895 COMBINED COMBINED COUNT 6 PHYSICIAN PHYSICIAN COMPLETE S LA S LA AUTO&AUTO DIFRNTL WBC COMPREHEN 70462 COMBINED COMBINED SIVE 6 PHYSICIAN PHYSICIAN [place] [address] COMBINED COMBINED FERRITIN 6 [place] [address] COMBINED COMBINED MAGNESIUM 6 PHYSICIAN PHYSICIAN S LA S LA TRAVEL [address] MED 6 PHYSICIAN PHYSICIAN NEC LAB S LA S LA SPEC; PRORATD TRIP [facility] COLLECTIO 33287 COMBINED COMBINED N VENOUS 6 PHYSICIAN PHYSICIAN BLOOD S LA S LA VENIPUNCT URE Encounters Encounter Start End Date Code Location Performer Type Date EMERGENCY 00790 TASHIA APPLE 6 6 PHYSICIAN DARIAN WHITE T VISIT HIGH/URGE NT SEVERITY [facility] INPATIENT 6 6 [facility] EMERGENCY 43120 TASHIA MARIE 6 6 PHYSICIAN DARIAN STEPHENS T VISIT HIGH/URGE NT SEVERITY [facility] INPATIENT 6 6 [facility] JAC - 6 6 [facility] T EMERGENCY 84881 JAC 6 6 [facility] T VISIT MODERATE SEVERITY EMERGENCY 41805 TASHIA RUBALCAVA 6 6 PHYSICIAN JUANJOSE SUAREZC T VISIT HIGH/URGE NT SEVERITY [facility] INPATIENT 6 6 [facility] INPATIENT 6 6 [facility] 6 6 [facility]
--- OUTSIDE RECORDS SUMMARY | 2016-07-29 11:46 | External Medical Summary Rpt ---
Author Author MARISELA Ahuja, [employer] Organization [employer] Address Unknown Phone Unavailable
--- OUTSIDE RECORDS SUMMARY | 2016-07-29 11:46 | External Medical Summary Rpt ---
Author Author , Organization [employer] Address Unknown Phone Unavailable Care Team Providers Care Field Support Specialist Name Role Phone BEINEKE DEANGELO, BEINEKE Unavailable [...] [facility] Un[facility] Unavailable HOME, [facility] Un[facility] Unavailable INC, [facility] [...] R05 COUGH 01-18-2016 [facility] [id number] CONTUSION 01-18-2016 [facility] UNS PART [facility]ANS, HEAD PLLC INITIAL ENCOUNTER [id number] UNSPECIFIED 01-18-2016 [facility]Y OF AMBULANCE HEAD SERVICE INITIAL ENCOUNTER [id number] STRAIN 01-18-2016 [facility] MUSCLE FASC [facility]YSICIANS, & TENDON PLLC NECK LEVL INIT ENC [id number] UNSPECIFIED 01-18-2016 [facility] INITIAL SERVICE [...] HOME R1319 OTHER 11-18-2015 [facility] DYSPHAGIA [facility]TER R262 DIFFICULTY 11-18-2015 [facility]URSING NOT HOME ELSEWHERE CLASSIFIED [id number] HISTORY OF 11-18-2015 [facility] R4182 ALTERED 10-31-2015 [facility] MENTAL [facility]ICAL STATUS [facility] UNSPECIFIED [id number] LACERATION 10-31-2015 [facility] W/O FB PHYSICIANS, OTHER PART [facility] HEAD INITIAL ENC G35 MULTIPLE 09-24-2015 [facility] SCLEROSIS AMBULANCE SERVICE [id number] PAIN IN 09-24-2015 [facility] RIGHT WRIST MEDICAL IMAGING ASS [id number] SPONDYLOSIS 09-24-2015 [facility] W/O MEDICAL MYELOPATH/R IMAGING ASS ADICULOPATH Y CERV RGN M5032 OTH CERV 09-24-2015 [facility] DISC MEDICAL DEGENERATIO IMAGING ASS N MID-CERVICA L REGION R51 HEADACHE 09-24-2015 [facility] R58 HEMORRHAGE 09-24-2015 [facility] NOT AMBULANCE ELSEWHERE SERVICE CLASSIFIED [id number] CONTUSION 09-24-2015 [place] OF [facility] INITIAL IMAGING ASS ENCOUNTER [id number] CONTUSION 09-24-2015 [facility] OTHER PART PHYSICIANS, OF HEAD PLLC INITIAL ENCOUNTER [id number] OTHER 09-24-2015 [facility] SPECIFIED AMBULANCE INJURIES SERVICE HEAD INITIAL ENCOUNTER [id number] UNSPECIFIED 09-24-2015 [place] INJURY OF MEDICAL NECK IMAGING ASS INITIAL ENCOUNTER [id number] LACERATION 09-24-2015 [place] W/O FOREIGN MEDICAL BODY RT IMAGING ASS WRIST INITIAL ENC [id number] UNSPECIFIED 09-24-2015 [place] INJURY RT MEDICAL WRIST [...] Procedure DOS Code Location Performer Comment CULTURE 76874 COMBINED COMBINED BACTERIAL 7 PHYSICIAN PHYSICIAN S LA S LA QUANTTATI VE COLONY COUNT URINE CULTURE 07707 COMBINED COMBINED BCT 7 PHYSICIAN PHYSICIAN ISOL&PRSM S LA S LA PTV ID ISOLATE EA URINE SUSCEPTIB 28513 COMBINED COMBINED ILITY 7 PHYSICIAN PHYSICIAN STUDY S LA S LA ANTIMICRO BIAL DISK METHOD VOLUME 52450 COMBINED COMBINED MEASUREME 7 PHYSICIAN PHYSICIAN NT TIMED S LA S LA COLLECTIO N EACH URNLS DIP 34672 COMBINED COMBINED 7 PHYSICIAN PHYSICIAN STICK/TAB S LA S LA LET REAGENT AUTO MICROSCOP Y BASIC 23541 COMBINED COMBINED METABOLIC 7 PHYSICIAN PHYSICIAN PANEL S LA S LA CALCIUM TOTAL LIPID 53283 COMBINED COMBINED PANEL 7 [place]YS[place] [address] COMBINED COMBINED FREE 7 PHYSICIAN PHYSIC[place] [address] COMBINED COMBINED THYROID 7 PHYSICIAN PHYSICIAN STIMULATI [place] [address] COMBINED COMBINED TRIIODOTH 7 PHYSICIAN PHYSICIAN YRONINE S LA S LA T3 TOTAL TT3 TRAVEL [address] MED 7 PHYSICIAN PHYSICIAN NEC LAB S LA S LA SPEC; PRORATD TRIP CHRG COLLECTIO 33879 COMBINED COMBINED N VENOUS 7 PHYSICIAN PHYSICIAN BLOOD S LA S LA VENIPUNCT URE BASIC 64081 COMBINED COMBINED METABOLIC 7 PHYSICIAN PHYSICIAN PANEL S LA S LA CALCIUM TOTAL GROUND A0425 [facility] PER SERVICE SERVICE STATUTE MILE AMBULANCE A0428 [facility] SERVICE 6 AMBULANCE AMBULANCE BLS SERVICE [place] [address] AMMY LERMAUTCHER HEAD/BRAI 6 MEDICAL NGA N W/O IMAGING CONTRAST ASS MATERIAL RADIOLOGI 84856 AMMY TAVAREZKE C 6 MEDICAL DEANGELO EXAMINATI IMAGING [place] [address] AMMY HERMAN CERVICAL 6 MEDICAL DEANGELO SPINE W/O IMAGING CONTRAST ASS MATERIAL GROUND A0425 [facility] 6 AMBULANCE AMBULANCE PER SERVICE SERVICE STATUTE MILE AMB A0427 [facility] SERVICE 6 AMBULANCE AMBULANCE ALS SERVICE SERVICE EMERGENCY TRANSPORT LEVEL 1 SET-UP Q0092 [facility] X-RAY EQUIPMENT RADIOLOGI 87517 [facility] EXAMINATI ON CHEST SINGLE VIEW FRONTAL TRANS R0070 [facility] X-RAY EQP&PERS MARJORIE/NRS MARJORIE-TRIP 1 PT BLOOD 96210 COMBINED COMBINED COUNT 6 PHYSICIAN PHYSICIAN COMPLETE S LA S LA AUTO&AUTO DIFRNTL WBC COLLECTIO 31105 COMBINED COMBINED N VENOUS 6 PHYSICIAN PHYSICIAN BLOOD S LA S LA VENIPUNCT URE COMPREHEN 37581 COMBINED COMBINED SIVE 6 PHYSICIAN PHYSICIAN METABOLIC S LA S LA PANEL TRAVEL [address] MED 6 PHYSICIAN PHYSICIAN NEC LAB S LA S LA SPEC; PRORATD TRIP CHRG SET-UP Q0092 [facility] X-RAY EQUIPMENT TRANS R0075 [facility] XRAY EQP&PERS MARJORIE/NRS MARJORIE-TRIP> 1 PT RADIOLOGI 44194 [facility] [place]AMINAT[place] [address] [place] [facility] HEAD/BRAI 6 MEDICAL NGA N W/[place] [address] [place] [facility] HEAD/BRAI 6 MEDICAL N W/O IMAGING CONTRAST ASS MATERIAL AMBULANCE A0428 [facility] SERVICE 6 AMBULANCE AMBULANCE BLS SERVICE SERVICE NONEMERGE NCY TRANSPORT RADEX 48556 [facility] COM[facility]TE [facility] [place] MIN[address] [place] [address] [place] [facility] MAXILLOFA 6 MEDICAL CIAL W/O IMAGING CONTRAST ASS MATERIAL RADEX 61520 [facility] WRIST 2 [address] [place] [address] [place] [facility] CERVICAL 6 MEDICAL SPINE W/O IMAGING CONTRAST ASS MATERIAL AMB A0427 [facility] SERVICE 6 AMBULANCE AMBULANCE ALS SERVICE SERVICE EMERGENCY TRANSPORT LEVEL 1 GROUND A0425 [facility] MILEAGE 6 AMBULANCE AMBULANCE PER SERVICE SERVICE STATUTE MILE COLLECTIO 41593 COMBINED COMBINED N VENOUS 6 PHYSICIAN PHYSICIAN BLOOD S LA S LA VENIPUNCT URE LIPID 78303 COMBINED COMBINED PANEL 6 PHYSICIAN PHYSICIAN S LA S LA TRAVEL [address] MED 6 PHYSICIAN PHYSICIAN NEC LAB S LA S LA SPEC; PRORATD TRIP CHRG TRAVEL [address] MED 6 PHYSICIAN PHYSICIAN NEC LAB S LA S LA SPEC; PRORATD TRIP CHRG BASIC 76404 COMBINED COMBINED METABOLIC 6 PHYSICIAN PHYSICIAN PANEL S LA S LA CALCIUM TOTAL COLLECTIO 78248 COMBINED COMBINED N VENOUS 6 PHYSICIAN PHYSICIAN BLOOD S LA S LA VENIPUNCT URE COLLECTIO 27349 COMBINED COMBINED N VENOUS 6 PHYSICIAN PHYSICIAN [place] [address] COMBINED COMBINED IRON 6 PHYSICIAN PHYSICIAN S LA S LA TRAVEL [address] MED 6 PHYSICIAN PHYSICIAN NEC LAB S LA S LA SPEC; PRORAT ACTL MILE TRAVEL [address] MED 6 PHYSICIAN PHYSICIAN NEC LAB S LA S LA SPEC; [place] [address] COMBINED COMBINED IRON 6 PHYSICIAN PHYSICIAN S LA S LA COLLECTIO 00010 COMBINED COMBINED N VENOUS 6 PHYSICIAN PHYSIC[place] [address] [facility] HEAD/BRAI 6 MEDICAL N W/O IMAGING CONTRAST ASS MATERIAL GROUND A0425 [facility] MILEAGE 6 AMBULANCE AMBULANCE PER SERVICE SERVICE STATUTE MILE AMB A0427 [facility] SERVICE 6 AMBULANCE AMBULANCE ALS SERVICE SERVICE EMERGENCY TRANSPORT LEVEL 1 [facility] 92426 COMBINED COMBINED METABOLIC 6 PHYSICIAN PHYSICIAN PANEL S LA S LA CALCIUM TOTAL TRAVEL [address] MED 6 PHYSICIAN PHYSICIAN NEC LAB S LA S LA SPEC; PRORATD TRIP CHRG COLLECTIO 65859 COMBINED COMBINED N VENOUS 6 PHYSICIAN PHYSICIAN BLOOD S LA S LA VENIPUNCT URE COLLECTIO 80353 COMBINED COMBINED N VENOUS 6 PHYSICIAN PHYSICIAN BLOOD S LA S LA VENIPUNCT URE TRAVEL [address] MED 6 PHYSICIAN PHYSICIAN NEC LAB S LA S LA SPEC; PRORATD TRIP [facility] BASIC 52614 COMBINED COMBINED METABOLIC 6 PHYSICIAN PHYSICIAN PANEL S LA S LA CALCIUM TOTAL TRAVEL [address] MED 6 PHYSICIAN PHYSICIAN NEC LAB S LA S LA SPEC; PRORATD TRIP [facility] COLLECTIO 00759 COMBINED COMBINED N VENOUS 6 PHYSICIAN PHYSICIAN BLOOD S LA S LA VENIPUNCT URE COMPREHEN 96723 COMBINED COMBINED SIVE 6 PHYSICIAN PHYSICIAN METABOLIC S LA S LA PANEL BLOOD 07040 COMBINED COMBINED COUNT 6 PHYSICIAN PHYSICIAN COMPLETE S LA S LA AUTO&AUTO DIFRNTL WBC SET-UP Q0092 [facility] X-RAY EQUIPMENT RADEX 76642 [facility] ABDOMEN 1 6 [facility] ANTEROPOS TERIOR VIEW TRANS R0070 [facility] X-RAY EQP&PERS MARJORIE/NRS MARJORIE-TRIP 1 PT RADIOLOGI 32861 [facility] EXAMINATI ON CHEST SINGLE VIEW FRONTAL RADIOLOGI 75053 [facility] EXAMINATI ON CHEST SINGLE VIEW FRONTAL TRANS R0070 [facility] PRTBL 6 [facility] X-RAY EQP&PERS MARJORIE/NRS MARJORIE-TRIP 1 PT SET-UP Q0092 [facility] 6 [facility] [place] [address] COMBINED COMBINED IRON 6 PHYSICIAN PHYSICIAN S LA S LA BLOOD 44033 COMBINED COMBINED COUNT 6 PHYSICIAN PHYSICIAN COMPLETE S LA S LA AUTO&AUTO DIFRNTL WBC COMPREHEN 92755 COMBINED COMBINED SIVE 6 PHYSICIAN PHYSICIAN [place] [address] COMBINED COMBINED FERRITIN 6 [place]YSIC[place] [address] COMBINED COMBINED MAGNESIUM 6 PHYSICIAN PHYSICIAN S LA S LA TRAVEL [address] MED 6 PHYSICIAN PHYSICIAN NEC LAB S LA S LA SPEC; PRORATD TRIP CHRG COLLECTIO 51150 COMBINED COMBINED N VENOUS 6 PHYSICIAN PHYSICIAN BLOOD S LA S LA VENIPUNCT URE Encounters Encounter Start End Date Code Location Performer Type Date EMERGENCY 24886 T[facility] APPLE 6 6 PHYSICIAN DARIAN WHITE T VISIT HIGH/URGE NT SEVERITY [facility] - [facility] INPATIENT 6 6 [facility] EMERGENCY 74131 TASHIA MARIE 6 6 PHYSICIAN DARIAN STEPHENS T VISIT HIGH/URGE NT SEVERITY [facility] - [facility] INPATIENT 6 6 [facility] - 6 6 [facility] T EMERGENCY 81014 [facility] 6 6 [facility] T VISIT MODERATE SEVERITY EMERGENCY 12637 TASHIA RUBALCAVA 6 6 PHYSICIAN JUANJOSE SUAREZC T VISIT HIGH/URGE NT SEVERITY [facility] INPATIENT 6 6 [facility] INPATIENT 6 6 [facility] INPATIENT 6 6 [facility]
--- NOTE | 2016-07-29 12:34 | RADIOLOGY REPORT PS360 ---
CT HEAD W/O CONTRAST COMPARISON: CT scan of brain noncontrast 01/18/2016 HISTORY: Patient fell out of wheelchair contusion right fore head TECHNIQUE: Multiaxial scans obtained from base skull to the vertex and were performed without contrast. FINDINGS: The base of skull is normal, the mastoids are clear. The basilar cisterns are prominent. There is diffuse ventriculomegaly as noted previously. In particular the temporal horns of the lateral ventricles are markedly dilated a finding more commonly seen in Alzheimer's disease. There is no bleed and there are no extra-axial fluid collections. There are prominent reticular hypodensities consistent with chronic ischemic white matter changes. Bony calvarium appears intact. There is minimal soft tissue swelling of the superior right fore head. IMPRESSION: Findings of prominent cortical atrophy and prominent chronic ischemic white matter changes, doubt acute intracranial pathology
[2016-07-29 13:02] VITALS: BP 126/85
== END ==
LOC: ER 11:06
DX: S01.111A Laceration without foreign body of right eyelid and periocular area, initial encounter (principal); W05.0XXA Fall from non-moving wheelchair, initial encounter; Z91.81 History of falling; Y92.129 Unspecified place in nursing home as the place of occurrence of the external cause; G30.9 Alzheimer's disease, unspecified; F02.80 Dementia in other diseases classified elsewhere, unspecified severity, without behavioral disturbance, psychotic disturbance, mood disturbance, and anxiety

== ENCOUNTER 2016-11-26 12:29 | Emergency (ER) | payer OTHER, MEDICARE, MEDICAID ==
[~2016-11-26] VITALS: Ht 177.8 cm; Wt 81.6 kg
--- NOTE | 2016-11-26 13:14 | Emergency Room Report ---
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 HOWEVER NURSE MENTIONED HE HAD RIGHT SIDE PERIORBITAL EDEMA PRIOR TO FALL PT IS A HOSPICE PATIENT WHO HAS A HISTORY OF FREQUENT FALLS; ALZHEIMERS MAKES HIM A POOR HISTORIAN. NO FAMILY PRESENT. 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 N Clinical Suspician of Infection? N Mental Status: 1 - Regular (Normal Baseline) Sepsis Risk:Low Sepsis Risk Have you (or family members/close friends) recently traveled outside the [place]? N If Yes, where/when: Have you had exposure to infectious disease within the past month? TB? Other? Specify: The history above was noted. 85-year-old white female with advanced Alzheimer contractures and DNR. He is multiple falls in the prison. He fell on a day or 2 ago with a result of contusion to the LEFT side of the face. He fell again today and landed on the RIGHT hip was brought to the ED for x-rays. Accompanied by his daughter and granddaughter affirmed that he is a DNR. The patient is sitting in the bed mumbling and contacted. Source RN notes reviewed, family, old records Exam Limitations clinical condition ALLERGIES Coded Allergies: No Known Allergies (11/26/16) Home Medications Active Scripts ALBUTEROL-IPRATROPIUM (Iprat-Albut 0.5-3(2.5) MG/3 Ml) 3 ML INH Q6H6 14 Days Prov: 07/21/16 Levofloxacin 250 MG PO DAILY 6 Days Prov: 07/21/16 Reported Medications Doxazosin Mesylate (Doxazosin) 1 MG PO QHS Acetaminophen (Pain Reliever) 500 mg PO Q6HP PRN PAIN Alprazolam 0.25 MG PO QHS & Q6HP PRN ANXIETY ASPIRIN (Aspirin) 81 MG PO DAILY Quetiapine Fumarate (Seroquel) 12.5 MG PO AM & HS Prednisone (Prednisone 5MG) 5 MG PO DAILY Finasteride 5 MG PO DAILY Amlodipine Besylate (Amlodipine) 10 MG PO DAILY Ferrous Sulfate (Ferrous Sulfate 325MG) 325 MG PO BID Finasteride 5 MG PO DAILY Propranolol Hcl (Inderal 20MG. Tablet) 20 MG PO BID History Medical History General CAD? No Angina: No [place]: No Hypertension? Yes Hyperlipidemia? Yes CHF? No DVT? No PE? No COPD? No Asthma? No Anemia? Yes GERD? No Gastric ulcers? Yes GI Bleed? No Hernia? Yes Thyroid Problems? No Hypothyroidism? No CVA? No Seizures? No Diabetes? No Renal Insuffiency? No End Stage Renal Disease? No UTI? No Stones? No BPH? Yes GB Disease: No Nephritic Syndrome? No Asplenia? No Hepatitis? No Sickle Cell Disease? No Arthritis? Yes Migraines? No Cataracts? Yes Glaucoma? No MRSA? No HIV? No TB? No Anxiety? Yes Depression? No Cancer? No More? 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 Ped.Immunizations UTD Yes DT/Tetanus 1-4 Years Ago Pneumonia Received In Past Surgical Hx Previous Surgery?Y HERNIA REPAIR Family History Family Hx Diabetes No CAD No Hypertension Yes Hyperlipidemia Yes Cancer Yes Social History Smoking Hx Smoker: Never Smoker Tobacco: No Type N/A Packs/day N/A Are you/the child exposed to second-hand smoke: No Alcohol Alcohol: No Review of Systems All Other Systems Reviewed and Negative Constitutional no symptoms reported Eyes no symptoms reported ENT no symptoms reported. Respiratory no symptoms reported Cardiovascular no symptoms reported Gastrointestinal no symptoms reported Genitourinary no symptoms reported. Musculoskeletal see HPI (contracted lower extremities) Skin no symptoms reported, see HPI (bruised face) Psychiatric/Neurological no symptoms reported Physical Exam Vital Signs Vital Signs Date Time Temp Pulse Resp B/P Pulse O2 O2 Flow FiO2 Ox Delivery Rate 11/26 1351 76 18 129/66 95 11/26 1231 97.0 67 18 131/64 98 - WBC >12,000 or <4,000 or 10% bands? 2 or more SIRS Criteria Met? B/P:131/64 MAP:86 Creatinine >2.0? UA output<0.5ml/kg/hr for 2 hrs? Platelet count >100,000? Lactate >2.0mmol/1? INR >1.2 or PTT > than 60 sec? Evidence of Organ Dysfunction? Provider documented clinical suspician of infection? N Sepsis Criteria Count: 0 Sepsis Risk: Low Sepsis Risk General Appearance normal appearance, WD/WN, no apparent distress, mumbling words words that is not understandable./ left facial red bruise underneath the left eye. Eye Exam - bilateral eye normal exam, bilateral eye PERRL, bilateral eye EOMI Ear, Nose, Throat hearing grossly normal, normal ENT inspection Neck normal inspection, non-tender, supple, full range of motion Respiratory Status Yes: trachea midline, chest symmetrical, non tender chest. No: respiratory distress. Lung Sounds bilateral: normal breath sounds, lungs clear. 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 No Results/Orders Orders Procedure Date/time Status DIET-NOTHING BY MOUTH 11/26 D Active GUEST TRAY 11/[address] HEAD REQ 11/[address] ABD/PELVIS REQ 11/26 1307 Complete HIP RT 2-3V W/PELVIS IF PERFOR 11/26 1230 Active Departure Departure Time of Disposition 1313 Disposition DC Home or Self Care(routine) Clinical Impression Primary Impression: Facial contusion Secondary Impressions: Contusion of hip, right, Dementia, DNR (do not resuscitate), Urinary bladder stone Condition STABLE Referrals Jacquie Travis MD (Family) Additional Instructions i discussedf withthe family all his x rays and scan findings, to observe for fever for possible pneumonia from the atlectasis or uti from the bladder stone. Reort this ED visit in AM to Dr Travis. Follow up with Dr. Travis on bladder stone Fall precautions DNR return if needed. Discharge Counseling Counseled pt/family regarding diagnosis, test results, home care, follow up needs ED Critical Care Critical Care No at 1428
--- NOTE | 2016-11-26 14:05 | RADIOLOGY REPORT PS360 ---
CT HEAD W/O CONTRAST HISTORY: Headache, head pain following injury. Swelling along right side of the head. Contusion FELL OUT OF W/C ORDERING PHYSICIAN: Lauri Bellamy MD PATIENT AGE: 85 years COMPARISON: 08/03/2016 TECHNIQUE: Axial images obtained without contrast. Brain and bone windows reviewed. FINDINGS: There is generalized atrophy with moderate periventricular and subcortical white matter hypoattenuation consistent with ischemic gliotic change from microvascular disease. No midline shift or mass effect. No acute intracranial hemorrhage. There is ventriculomegaly likely related to the brain volume loss. This is more prominent in the temporal lobe and is similar when compared to the previous exam. No acute calvarial fracture or sinus air-fluid level. There is subcutaneous soft tissue swelling in the right frontal region. IMPRESSION: 1. No acute intracranial findings. 2. Atrophy with chronic ischemic change. 3. Right frontal scalp hematoma
--- NOTE | 2016-11-26 14:08 | RADIOLOGY REPORT PS360 ---
CT CERVICAL SPINE W/O CONT INDICATION: Neck pain following injury FELL OUT OF W/C ORDERING PHYSICIAN: Lauri Bellamy MD PATIENT AGE: 85 years COMPARISON: 08/03/2016 TECHNIQUE: Axial images are obtained without contrast. Sagittal and coronal reformatted images are reviewed as well. FINDINGS: Normal alignment. There is reversal the cervical lordosis. There is 3 mm anterolisthesis of C4 on C5 similar to the previous exam. No acute fracture or dislocation evident. There are osteoarthritic changes of the atlantoaxial joint anteriorly. Multilevel degenerative disc disease present at C5-C6, C6-C7, and C7-T1 and T1-T2. Multilevel facet hypertrophic changes with mild bilateral foraminal narrowing at C3-C4 greater on the right, C4-C5 greater on the right, C5-C6 on the right, and C6-C7 on the left. No prevertebral soft tissue swelling. Left pleural effusion is present IMPRESSION: 1. Moderate cervical spondylosis. 2. No acute fracture.
--- NOTE | 2016-11-26 14:14 | RADIOLOGY REPORT PS360 ---
CT PELVIS W/O CONTRAST INDICATION: Right hip pain following injury FELL OUT OF W/C ORDERING PHYSICIAN: Lauri Bellamy MD PATIENT AGE: 85 years COMPARISON: None TECHNIQUE: Axial images are obtained without contrast. Sagittal and coronal reformatted images are reviewed as well. FINDINGS: Patient's hips are fixed in flexion. No fracture or dislocation is evident. There are mild osteoarthritic changes of the hips, lumbar spine, and SI joints. Incidental note is made of left urinary bladder stone. IMPRESSION: 1. No acute fracture. 2. Osteoarthritis of the right hip. 3. 16mm urinary bladder stone on the left
--- NOTE | 2016-11-26 14:16 | RADIOLOGY REPORT PS360 ---
CHEST-AP VIEW ONLY HISTORY: Chest pain following injury felll of a chair ORDERING PHYSICIAN: Lauri Bellamy MD PATIENT AGE: 85 years COMPARISON: None available FINDINGS: Somewhat limited exam technically. Normal heart size. Chronic changes are present in the right lung base. There is increased density in the left retrocardiac region and in part may be due to the technique. Cannot exclude underlying consolidation or volume loss in the left lower lobe. Otherwise negative. IMPRESSION: Limited exam with chronic changes and left lower lobe atelectasis or consolidation
[2016-11-26 15:26] VITALS: BP 129/66
--- NOTE | 2016-11-27 06:37 | RADIOLOGY REPORT PS360 ---
HIP RT 2-3V W/PELVIS IF PERFOR HISTORY: Right hip pain following injury FELL OUT OF WC ORDERING PHYSICIAN: Lauri Bellamy MD PATIENT AGE: 85 years COMPARISON: None FINDINGS: Study is limited due to patient's inability to be properly positioned. No displaced fractures evident. There is no evidence of dislocation.. There is some deformity of the femoral neck with a faint sclerotic density in the mid aspect of the femoral neck. This may be due to summation density from overlying femoral head osteophyte. CT may confirm. Patient's femurs are fixed in flexion. Mild osteoarthritic changes involve the hip joints. IMPRESSION: No displaced fracture or dislocation. Density over the femoral neck which may be related to overlying osteophyte. CT suggested to exclude nondisplaced fracture
== END 2016-11-26 15:26 | disposition home or self-care (01) ==
LOC: ER 12:29
DX: S70.01XA Contusion of right hip, initial encounter (principal); S00.83XA Contusion of other part of head, initial encounter; I10 Essential (primary) hypertension; F41.9 Anxiety disorder, unspecified; N21.0 Calculus in bladder; W05.0XXA Fall from non-moving wheelchair, initial encounter; Y92.129 Unspecified place in nursing home as the place of occurrence of the external cause; R29.6 Repeated falls; G30.8 Other Alzheimer's disease; F02.80 Dementia in other diseases classified elsewhere, unspecified severity, without behavioral disturbance, psychotic disturbance, mood disturbance, and anxiety; Z66 Do not resuscitate; Z79.82 Long term (current) use of aspirin; Z79.52 Long term (current) use of systemic steroids; Z79.899 Other long term (current) drug therapy

== ENCOUNTER → 2016-12-24 | Outpatient (CLI) | payer OTHER, MEDICARE, MEDICAID ==
[2016-12-24 11:58] LABS: HEMOGLOBIN 8.9 g/dL (14.1-18.0); LYMPH # 2.9 K/mm3 (0.7-4.5); LYMPH % 10.3 % (10-50)
[2016-12-24 12:16] LABS: NEUTROPHILS 77 % (42-76)
== END ==
LOC: LAB 11:48
PROVIDERS: Family Medicine
DX: D64.9 Anemia, unspecified (principal)